=== PATIENT | male | born 1990 | race Caucasian/White ===

== ENCOUNTER 2018-12-13 10:33 | Day surgery (SDC) | payer BC ==
[~2018-12-13 10:33] MED LIST: INFLIXIMAB IVPB SCH; SODIUM CHLORIDE 0.9% IVPB SCH; Sodium Chloride 0.9% 1,000 ML IV SCH
[2018-12-13] MEDS ORDERED: INFLIXIMAB DYYB IVPB SCH (11:45)
[2018-12-13] MEDS ORDERED: SODIUM CHLORIDE 0.9% IVPB SCH (11:45)
[2018-12-13] MEDS ORDERED: Sodium Chloride 0.9% 20 ML ONE (12:29)
[2018-12-13] MEDS ORDERED: Acetaminophen 500 MG TAB PO SCH (12:30)
[2018-12-13] MEDS ORDERED: diphenhydrAMINE 25 MG CAP PO SCH (12:30)
[2018-12-13 14:54] VITALS: BP 131/69; TEMP 98.9
== END 2018-12-13 14:55 | disposition home or self-care (01) ==
LOC: ONC/OP 10:33
PROVIDERS: ATTEND Internal Medicine Gastroenterology
DX: K51.919 Ulcerative colitis, unspecified with unspecified complications (principal)
CPT/HCPCS: 96413; 96415; J1745; J7050; Q0163; Q5103